=== PATIENT | male | born 1965 | race Caucasian/White ===

== ENCOUNTER 2018-12-09 11:42 | Emergency (ER) | payer OTHER ==
[~2018-12-09] VITALS: Ht 193 cm; Wt 105.2 kg
[~2018-12-09 11:42] MED LIST: BENTYL10 MG/ML IM; PROTONIX40 MG PO; REGLAN5 MG/5 ML PO
[2018-12-09] MEDS ORDERED: TOPROL XL100 MG (12:03)
[2018-12-09] MEDS ORDERED: PLAVIX75 MG (12:03)
[2018-12-09] MEDS ORDERED: LASIX40 MG (12:03)
[2018-12-09] MEDS ORDERED: ALTACE10 MG (12:03)
[2018-12-09] MEDS ORDERED: ALLOPURINOL300 MG (12:05)
== END 2018-12-09 15:38 | disposition home or self-care (01) ==
LOC: ER 11:42
DX: M25.422 Effusion, left elbow (principal); L03.114 Cellulitis of left upper limb